=== PATIENT | female | born 1985 | race Caucasian/White ===

== ENCOUNTER 2016-12-03 17:04 | Inpatient (IN) | payer BC ==
[~2016-12-03] VITALS: Ht 162.6 cm; Wt 59.7 kg
[2016-12-03] MEDS ORDERED: ACETAMINOPHEN 500 MG TAB PO STA (17:27)
[2016-12-03] MEDS ORDERED: SODIUM CHLORIDE 0.9% 1000ML 1,000 ML IV ONE (17:27)
[2016-12-03] MEDS ORDERED: LEVOFLOXACIN 250 MG TAB PO STA (17:27)
[2016-12-03] MEDS ORDERED: KETOROLAC TROMETHAMINE 30 MG/ML VIAL IV STA (17:32)
[2016-12-03] MEDS ORDERED: BCPILLS PO (17:55)
--- NOTE | 2016-12-03 18:06 | DIAGNOSTIC IMAGING REPORT ---
CHEST ONE VIEW PORTABLE CLINICAL HISTORY: Sepsis COMPARISON STUDY: No previous studies for comparison. FINDINGS: The cardiac and mediastinal contours are normal. There is no evidence of focal pulmonary consolidation. There is no evidence of failure. No pleural effusions are visualized.[ IMPRESSION: No active disease in the chest. Electronically signed by: Gildardo Dickinson M.D. 12/03/2016 6:05 PM Dictated Date/Time: 12/03/2016 6:05 PM
[2016-12-03 18:20] LABS: URINE APPEARANCE CLEAR (CLEAR); URINE COLOR ORANGE; URINE EPITHELIAL CELL AUTO >30 /lpf (0-5); URINE NITRITE NEG (NEG); URINE PH 5.5 (4.5-7.5); URINE SPECIFIC GRAVITY 1.024 (1.000-1.030); UROBILINOGEN NEG (NEG); ZZUR CULT IF INDIC CLEAN CATCH YES
[2016-12-03 18:23] LABS: INR 1.1 (0.9-1.1); PARTIAL THROMBOPLASTIN RATIO 1.3; PROTHROMBIN TIME (PATIENT) 11.6 SECONDS (9.0-12.0)
[2016-12-03 18:31] LABS: BUN/CREATININE RATIO 16.2 (10-20); CREATININE 0.8 mg/dl (0.60-1.20); POTASSIUM 3.5 mmol/L (3.5-5.1)
[2016-12-03 18:34] LABS: ALB/GLOB RATIO 0.8 (0.9-2); C-REACTIVE PROTEIN 16.2 mg/dl (0-0.29); MANUAL MICROSCOPIC REQUIRED? NO; REVIEW REQ? YES; URINE BILIRUBIN NEG (NEG)
[2016-12-03 18:35] LABS: URINE MUCUS PRESENT (NONE PRSENT)
[2016-12-03 18:48] LABS: BASO % 0.2 %; BASO ABS # 0.04 K/uL (0-0.2); COMPLETE YES; EOS % 0.9 %; HEMATOCRIT 37.5 % (37-47); IG% 0.4 %; LYMPH ABS # 1.16 K/uL (1.2-3.4); MEAN CELL VOLUME 84.1 fL (80-100); MEAN CORPUSCULAR HEMOGLOBIN 28.7 pg (25-34); MEAN CORPUSCULAR HGB CONC 34.1 g/dl (32-36); MEAN PLATELET VOLUME 10.2 fL (7.4-10.4); MONO % 6.9 %; NEUT % 84.6 %; PLATELET COUNT 403 K/uL (130-400); RED BLOOD COUNT 4.46 M/uL (4.2-5.4); WHITE BLOOD COUNT 16.61 K/uL (4.8-10.8)
--- NOTE | 2016-12-03 18:51 | DIAGNOSTIC IMAGING REPORT ---
ULTRASOUND BILATERAL LOWER EXTREMITY VENOUS CLINICAL HISTORY: Lower extremity edema. COMPARISON STUDY: No priors. TECHNIQUE: Real-time, grayscale, and color Doppler sonography of the deep veins of the right and left lower extremity was performed from the inguinal crease to the calf. Compression and augmentation were utilized. FINDINGS: There is no sonographic evidence of deep venous thrombosis identified in the right or left lower extremity. The common femoral, superficial femoral, and popliteal veins are patent and normally compressible bilaterally. The greater saphenous vein and the profunda femoris vein at the junction with the common femoral vein are clear in both legs. The visualized calf veins are patent bilaterally. IMPRESSION: There is no sonographic evidence of deep venous thrombosis identified in the right or left lower extremity. Electronically signed by: Harvey Menard M.D. 12/03/2016 6:49 PM Dictated Date/Time: 12/03/2016 6:49 PM
[2016-12-03] MEDS ORDERED: VANCOMYCIN 1GM/270ML NSS IV STA (19:09)
--- NOTE | 2016-12-03 19:55 | EMERGENCY ROOM VISIT NOTE ---
History Report prepared by Nelda: Abraham Potter Under the Supervision of: Dr. Harvey Chacon M.D. First contact with patient: 17:24 Chief Complaint: SWELLING TO EXTREMITY Stated Complaint: SEVERE BRUSING, SWELLING, INFLAMMATION ON LEGS History of Present Illness The patient is a 31 year old female who presents to the Emergency Room with complaints of worsening lower extremity swelling that began two weeks ago. She rates her pain as an 8/10 in severity. She states that she went on a plane to go on vacation two weeks ago and noticed that there was some redness to her legs. The patient states that following vacation, her legs began to swell and the red spots on her legs worsened. She reports that over the last two weeks her swelling and redness has worsened. The patient states that her legs are painful when they are touched. The patient states that over the weekend, her symptoms have been the worst. She states that she went to [employer] where she found out she had a fever and was diagnosed with bilateral cellulitis. The patient admits to a history of bronchitis for four months this year, and reports that she coughs once in a while. She states that she believes the cough is due to her bronchitis history. The patient denies a history of diabetes, liver problem, lung problems, and kidney issues. She admits that she currently takes control pills and is allergic to Penicillin. The patient denies any bites, sore throat, vomiting, diarrhea, and congestion. Source of History: patient Onset: two weeks ago Position: leg (bilateral) Symptom Intensity: 8/10 Quality: other (swelling, erythema, pain) Timing: worsening Modifying Factors (Worsening): other (touch) Associated Symptoms: + cough, + rash, No sorethroat, No vomiting, No diarrhea Review of Systems See HPI for pertinent positives & negatives. A total of 10 systems reviewed and were otherwise negative. Past Medical & Surgical Medical Problems: (1) Bronchitis (2) Bronchitis (3) Cellulitis Family History Patient reports no known family medical history. Social History Smoking Status: Never Smoker Housing Status: lives with significant other Occupation Status: employed Current/Historical Medications Scheduled Control Pills ( Control Pills), 1 TAB PO DAILY Allergies Uncoded Allergies: PENICILLIN (Allergy, Unknown, UNKNOWN - CHILDHOOD, 12/03/16) Physical Exam Vital Signs Date Time Temp Pulse Resp B/P (MAP) Pulse Ox O2 Delivery O2 Flow Rate FiO2 12/03/16 19:21 116 18 101/59 97 Room Air 12/03/16 17:57 Room Air 12/03/16 17:19 38.0 125 20 136/84 99 Room Air Physical Exam GENERAL: Patient is in no acute distress. HEENT: No acute trauma, normocephalic atraumatic, mucous membranes moist, no nasal congestion, no scleral icterus. NECK: No stridor, no adenopathy, no meningismus, trachea is midline. LUNGS: Clear to auscultation bilaterally, no wheeze, no rhonchi, breath sounds equal. HEART: Tachycardic with a regular rhythm and no murmurs. ABDOMEN: Soft, nontender, bowel sounds positive, no hernias, no peritonitis. EXTREMITIES: Bilateral pedal edema. There are areas of erythema and warmth to both legs in a patchy distribution mostly anteriorly. Located from the knees to the ankles. No drainage. NEUROLOGIC: Oriented x 3, no acute motor or sensory deficits, no focal weakness. SKIN: No rash, no jaundice, no diaphoresis. Medical Decision & Procedures ER Provider Diagnostic Interpretation: Radiology results as stated below per my review and radiologist interpretation: ULTRASOUND BILATERAL LOWER EXTREMITY VENOUS CLINICAL HISTORY: Lower extremity edema. COMPARISON STUDY: No priors. TECHNIQUE: Real-time, grayscale, and color Doppler sonography of the deep veins of the right and left lower extremity was performed from the inguinal crease to the calf. Compression and augmentation were utilized. FINDINGS: There is no sonographic evidence of deep venous thrombosis identified in the right or left lower extremity. The common femoral, superficial femoral, and popliteal veins are patent and normally compressible bilaterally. The greater saphenous vein and the profunda femoris vein at the junction with the common femoral vein are clear in both legs. The visualized calf veins are patent bilaterally. IMPRESSION: There is no sonographic evidence of deep venous thrombosis identified in the right or left lower extremity. Electronically signed by: Harvey Menard M.D. 12/03/2016 6:49 PM Dictated Date/Time: 12/03/2016 6:49 PM CHEST ONE VIEW PORTABLE CLINICAL HISTORY: Sepsis COMPARISON STUDY: No previous studies for comparison. FINDINGS: The cardiac and mediastinal contours are normal. There is no evidence of focal pulmonary consolidation. There is no evidence of failure. No pleural effusions are visualized.[ IMPRESSION: No active disease in the chest. Electronically signed by: Gildardo Dickinson M.D. 12/03/2016 6:05 PM Dictated Date/Time: 12/03/2016 6:05 PM Laboratory Results 12/03/16 17:45 Red Blood Count 4.46, Mean Corpuscular Volume 84.1, Mean Corpuscular Hemoglobin 28.7, Mean Corpuscular Hemoglobin Concent 34.1, Mean Platelet Volume 10.2, Neutrophils (%) (Auto) 84.6, Lymphocytes (%) (Auto) 7.0, Monocytes (%) (Auto) 6.9, Eosinophils (%) (Auto) 0.9, Basophils (%) (Auto) 0.2, Neutrophils # (Auto) 14.05, Lymphocytes # (Auto) 1.16, Monocytes # (Auto) 1.14, Eosinophils # (Auto) 0.15, Basophils # (Auto) 0.04 12/03/16 17:45 Test 12/03/16 17:45 White Blood Count 16.61 K/uL (4.8-10.8) Red Blood Count 4.46 M/uL (4.2-5.4) Hemoglobin 12.8 g/dL (12.0-16.0) Hematocrit 37.5 % (37-47) Mean Corpuscular Volume 84.1 fL (80-100) Mean Corpuscular Hemoglobin 28.7 pg (25-34) Mean Corpuscular Hemoglobin Concent 34.1 g/dl (32-36) Platelet Count 403 K/uL (130-400) Mean Platelet Volume 10.2 fL (7.4-10.4) Neutrophils (%) (Auto) 84.6 % Lymphocytes (%) (Auto) 7.0 % Monocytes (%) (Auto) 6.9 % Eosinophils (%) (Auto) 0.9 % Basophils (%) (Auto) 0.2 % Neutrophils # (Auto) 14.05 K/uL (1.4-6.5) Lymphocytes # (Auto) 1.16 K/uL (1.2-3.4) Monocytes # (Auto) 1.14 K/uL (0.11-0.59) Eosinophils # (Auto) 0.15 K/uL (0-0.5) Basophils # (Auto) 0.04 K/uL (0-0.2) RDW Standard Deviation 37.9 fL (36.4-46.3) RDW Coefficient of Variation 12.4 % (11.5-14.5) Immature Granulocyte % (Auto) 0.4 % Immature Granulocyte # (Auto) 0.07 K/uL (0.00-0.02) Erythrocyte Sedimentation Rate 43 mm/hr (0-21) Prothrombin Time 11.6 SECONDS (9.0-12.0) Prothromb Time International Ratio 1.1 (0.9-1.1) Activated Partial Thromboplast Time 32.9 SECONDS (21.0-31.0) Partial Thromboplastin Ratio 1.3 Urine Color ORANGE Urine Appearance CLEAR (CLEAR) Urine pH 5.5 (4.5-7.5) Urine Specific [place] 1.024 (1.000-1.030) Urine Protein TRACE (NEG) Urine Glucose (UA) NEG (NEG) Urine Ketones TRACE (NEG) Urine Occult Blood NEG (NEG) Urine Nitrite NEG (NEG) Urine Bilirubin NEG (NEG) Urine Urobilinogen NEG (NEG) Urine Leukocyte Esterase SMALL (NEG) Urine WBC (Auto) 10-30 /hpf (0-5) Urine RBC (Auto) 0-4 /hpf (0-4) Urine Hyaline Casts (Auto) 0 /lpf (0-5) Urine Epithelial Cells (Auto) >30 /lpf (0-5) Urine Bacteria (Auto) 1+ (NEG) Urine Pathogenic Casts /lpf (0) Urine Mucus PRESENT (NONE PRSENT) Anion Gap 9.0 mmol/L (3-11) Est Creatinine Clear Calc Drug Dose 88.0 ml/min Estimated GFR () 113.9 Estimated GFR (Non- 98.2 BUN/Creatinine Ratio 16.2 (10-20) Calcium Level 9.0 mg/dl (8.5-10.1) Total Bilirubin 0.8 mg/dl (0.2-1) Aspartate Amino Transf (AST/SGOT) 8 U/L (15-37) Alanine Aminotransferase (ALT/SGPT) 18 U/L (12-78) Alkaline Phosphatase 83 U/L (45-117) C-Reactive Protein 16.20 mg/dl (0-0.29) Total Protein 7.9 gm/dl (6.4-8.2) Albumin 3.4 gm/dl (3.4-5.0) Globulin 4.5 gm/dl (2.5-4.0) Albumin/Globulin Ratio 0.8 (0.9-2) Medications Administered Medications (Trade) Dose Ordered Sig/Vandana Route Start Time Stop Time Status Last Admin Dose Admin Sodium Chloride 1,000 ml @ 999 mls/hr Q1H1M ONCE IV 12/03/16 17:27 12/03/16 18:27 DC 12/03/16 17:59 999 MLS/HR Acetaminophen (Tylenol Tab) 1,000 mg NOW STAT PO 12/03/16 17:27 12/03/16 17:32 DC 12/03/16 17:59 1,000 MG Levofloxacin (Levaquin Tab) 750 mg NOW STAT PO 12/03/16 17:27 12/03/16 17:32 DC 12/03/16 17:59 750 MG Ketorolac Tromethamine (Toradol Inj) 30 mg NOW STAT IV 12/03/16 17:32 12/03/16 17:33 DC 12/03/16 18:00 30 MG Vancomycin HCl (Vancomycin 1gm/ 270ml Nss) 1 gm NOW STAT IV 12/03/16 19:09 12/03/16 19:11 DC 12/03/16 19:20 1 GM ED Course 1727: The patient was evaluated in room A10. A complete history and physical exam was performed. 1727: Ordered Levaquin Tab 750 mg PO, Tylenol Tab 1000 mg PO, Sodium Chloride 1000 ml @ 999 mls/hr IV. 173: Ordered Toradol Injection 30 mg IV. 1908: Ordered Vancomycin HCl 1 gm IV. 1913: I reevaluated the patient and updated her on her results. I discussed the treatment plan and she agrees. The patient will be further evaluated. 1911: I discussed the patients case with Dr. Linder, [facility]. He understands the patients condition and agrees to accept the patient. The patient will be further evaluated. Medical Decision The patient is a 31 year old female who presents to the ED with complaints of worsening bilateral lower extremity edema that began two weeks ago. Differential diagnoses considered include erythema nodosum, cellulitis, DVT, sepsis or bacteremia, electrolyte imbalance, dehydration, and viral illness., There is a moderate leukocytosis, this is consistent with infection. No concerning anemia. No significant electrolyte abnormality, kidney failure or hepatitis. Lactic acid value is currently pending. Chest film does not show pneumonia or CHF. Bilateral lower extremity ultrasound does not show evidence for DVT. Blood cultures are pending. There was no coagulopathy. Urinalysis shows contamination, no obvious infection. The patient presents with leg redness and fever. She has a leukocytosis and presents somewhat tachycardic. Cellulitis seems the most likely diagnosis although the distribution of the cellulitis is somewhat atypical. Erythema nodosum is also a possibility. I do think a hospital stay is warranted. I spoke to the patient and the director of casework. The on-call hospitalist was consulted. The patient received oral Levaquin, IV vancomycin. She received IV saline for hydration. She was given IV Toradol for pain. She received oral Tylenol for her fever. She seems comfortable. Medication Reconcilliation Current Medication List: was personally reviewed by me Blood Pressure Screening Patient's blood pressure: Elevated blood pressure Blood pressure disposition: Elevated BP felt to be situational Consults Time Called: 1911 [facility] Returned Call: 1911 I [facility] the patients case [facility] He understands the patients condition and agrees to accept the patient. The patient will be further evaluated. Impression Primary Impression: Cellulitis of both lower extremities Additional Impression: Tachycardia Scribe Attestation The scribe's documentation has been prepared under my direction and personally reviewed by me in its entirety. I confirm that the note above accurately reflects all work, treatment, procedures, and medical decision making performed by me. Departure Information Dispostion Being Evaluated By Hospitalist Referrals Licha Nguyen D.O. (PCP) Patient Instructions [facility] Problem Qualifiers
[2016-12-03 20:00] VITALS: BP 104/66; TEMP 36.9; O2SAT 95; Ht 162.6 cm; Wt 59.7 kg
[2016-12-03] MEDS ORDERED: ONDANSETRON INJ 2 MG/ML 2 ML VIAL IV PRN (20:00)
[2016-12-03] MEDS ORDERED: POLYETHYLENE (MIRALAX) 17 GM PACK PO PRN (20:00)
[2016-12-03] MEDS ORDERED: ACETAMINOPHEN 325 MG TAB PO PRN (20:00)
[2016-12-03 20:21] VITALS: O2SAT 97
[2016-12-03 20:59] VITALS: BP 104/66; PULSE 103; TEMP 36.9; O2SAT 95
[2016-12-03] MEDS ORDERED: VANCOMYCIN CONSULT ACTIVE PRN (21:00)
--- NOTE | 2016-12-03 21:01 | HISTORY & PHYSICAL EXAMINATION ---
DATE OF ADMISSION: 12/03/2016 CHIEF COMPLAINT: Bilateral lower extremity pain and erythema. HISTORY OF PRESENT ILLNESS: This is a 31-year-old female with no significant past medical history, who comes with bilateral lower extremity erythema and swelling. The patient states that she was on vacation in [place], [place] and [place] and came back a couple of weeks ago. Since she came in she noticed some bruises on her lower extremity and over the last weekend they have got worse and also noticed swelling in the legs; so she went to a urgent care and was sent to the ER. She was found to have some temp spike in the ER. She denies any insect bite or tick bite. No injury. Otherwise, she is doing okay. She denies any headaches, no blurred vision, no dizziness, no sore throat and no difficulty swallowing. No runny nose, no chest pain, no shortness of breath, no cough, no nausea, no vomiting and no abdominal pain. Has normal bowel and bladder movements. No blood in the stools, no black stools and no blood in the urine. Appetite is okay. Since yesterday, she is having difficulty ambulating because of pain in the lower extremities. Currently resting comfortably, somewhat tachycardic in the ER. ALLERGIES: TO PENICILLINS. PAST MEDICAL HISTORY: As mentioned above. PAST SURGICAL HISTORY: Dental surgeries. MEDICATIONS: control pills. FAMILY HISTORY: Significant for; mother has anemia and father has hypertension and skin cancer. SOCIAL HISTORY: . No smoking history. Uses alcohol occasionally. No drug abuse. REVIEW OF SYMPTOMS: As per HPI. Rest of the review of systems negative. PHYSICAL EXAMINATION: GENERAL: The patient is of moderate build, not in distress. VITAL SIGNS: T-max 38, pulse 116, respiratory rate 18, blood pressure 101/59 and oxygen 97% on room air. HEENT: No pallor, no icterus. Pupils are equal, round and reactive to light. NECK: No JVD, no neck masses, no carotid bruits. CARDIOVASCULAR: S1, S2 heard. Tachycardia. No murmurs. RESPIRATORY SYSTEM: Normal AP diameter. No accessory muscle use. No wheezing, no crackles. ABDOMEN: Soft, bowel sounds are present. Nontender. No distention. CENTRAL NERVOUS SYSTEM: Cranial nerves II-XII are grossly intact. Nonfocal. EXTREMITIES: Bilateral lower extremity edema seen and patchy erythematous changes and symmetrical distribution in bilateral lower extremity seen. LABORATORIES: WBC 16, hemoglobin 12.8, hematocrit 37.5 and platelets 403. Sodium 135, potassium 3.5, chloride 102, bicarbonate 24, BUN 13, creatinine 0.8 and serum glucose 92. Total bilirubin 0.8, AST 8, ALT 18 and alkaline phosphatase 83. C-reactive protein 16.2. PT 11.6, INR 1.1 and PTT 32.9. Urinalysis; positive for leukocyte esterase. Lower extremity venous Doppler; negative study. Chest x-ray; no acute findings seen. ASSESSMENT AND PLAN: This is a 31-year-old female, who presents with lower extremity erythema and swelling. 1. Lower extremity erythema and swelling. She has patchy erythematous changes with poor demarcation on lower extremities, mostly on the schaefer areas. She had temp spike, tachycardia and white count. Possible early sepsis with cellulitis. Empirically starting on IV vancomycin and IV Levaquin. Follow blood cultures and urine cultures. Questionable erythema nodosum. Has erythematous changes, patchy, poorly demarcated and symmetrically on both the lower extremities and the schaefer areas. Etiology is unclear. We will consult ID and if there any concern for erythema nodosum we will consult rheumatology. 2. Possible urinary tract infection, on antibiotics as above. Will follow cultures. 3. Deep venous thrombosis prophylaxis, Lovenox. 4. Disposition: Admit to medical floor. Expect discharge home and follow with the family doctor. Level 1 full code. MTDD
--- NOTE | 2016-12-03 21:11 | Pharmacy Progress Note ---
Pharmacy Abx Initial Consult Date of Service Dec 03, 2016. Pharmacy Dosing Scope Date of Consult: 12/03/16 Consultation requested by: Dr. Linder Pharmacy is consulted to initiate Vancomycin IV dosing therapy, order appropriate labs and adjust drug dose/frequency. Subjective The patient is a 31 year old female admitted on Dec 03, 2016 at 19:58. Objective Height (Feet): 5 Height (Inches): 4.00 Weight (Kilograms): 59.700 Vital Signs (Past 12Hrs) Vital Signs Past 12 Hours Date Time Temp Pulse Resp B/P (MAP) Pulse Ox O2 Delivery O2 Flow Rate FiO2 12/03/16 20:59 36.9 103 18 104/66 (79) 95 Room Air 12/03/16 20:21 36.9 104 16 96/49 97 12/03/16 19:21 116 18 101/59 97 Room Air 12/03/16 17:57 Room Air 12/03/16 17:19 38.0 125 20 136/84 99 Room Air Lab Results (24Hrs) Item Value Date Time Creatinine 0.80 mg/dl 12/03/161744 Est Creatinine Clear Calc Drug Dose 88.0 ml/min 12/03/161744 Estimated GFR () 113.9 12/03/161744 Estimated GFR (Non- 98.2 12/03/161744 Laboratory Tests (24 Hours) Test 12/03/16 17:45 C-Reactive Protein 16.20 mg/dl (0-0.29) H Erythrocyte Sedimentation Rate 43 mm/hr (0-21) H White Blood Count 16.61 K/uL (4.8-10.8) H Red Blood Count 4.46 M/uL (4.2-5.4) Hemoglobin 12.8 g/dL (12.0-16.0) Hematocrit 37.5 % (37-47) Mean Corpuscular Volume 84.1 fL (80-100) Mean Corpuscular Hemoglobin 28.7 pg (25-34) Mean Corpuscular Hemoglobin Concent 34.1 g/dl (32-36) Platelet Count 403 K/uL (130-400) H Mean Platelet Volume 10.2 fL (7.4-10.4) Neutrophils (%) (Auto) 84.6 % Lymphocytes (%) (Auto) 7.0 % Monocytes (%) (Auto) 6.9 % Eosinophils (%) (Auto) 0.9 % Basophils (%) (Auto) 0.2 % Neutrophils # (Auto) 14.05 K/uL (1.4-6.5) H Lymphocytes # (Auto) 1.16 K/uL (1.2-3.4) L Monocytes # (Auto) 1.14 K/uL (0.11-0.59) H Eosinophils # (Auto) 0.15 K/uL (0-0.5) Basophils # (Auto) 0.04 K/uL (0-0.2) Micro Results Date/Time Source Procedure Growth Status 12/03/16 18:10 Blood Blood Culture Pending Received 12/03/16 17:46 Blood Blood Culture Pending Received 12/03/16 17:45 Urine , Clean Catch Urine Culture Pending Received Assessment & Plan Assessment 31 year old female patient presented to the ED with complaints of worsening bilateral lower extremity edema that began two weeks ago. Differential diagnoses included erythema nodosum, cellulitis, DVT, sepsis or bacteremia, electrolyte imbalance, dehydration, and viral illness., Plan Vancomycin for treatment of Cellulitis/Bacteremia Vancomycin IV * Loading dose: 1,000 mg (16.8 mg/kg) * Maintenance dose: 1,000 mg IV (16.8 mg/kg) every 12 hours. * Began maintenance dose early at 02:00 on 12/04/16 instead of an additional loading dose. * Goal trough level for soft skin tissue/bacteremia : 15 to 20 mcg/mL * Trough/Random level ordered for 12/05/16 @13:30. Pharmacy will continue to follow and will adjust dose/frequency as necessary. Thank you.
[2016-12-03] MEDS: ENOXAPARIN 40 MG/0.4 ML SYR SQ SCH (22:00)
[2016-12-03] MEDS: SODIUM CHLORIDE 0.9% 1000ML 1,000 ML IV SCH (22:20)
[2016-12-03] MEDS: [UNRECOGNIZED DRUG - REMARK] SCH (23:45)
[2016-12-04 00:05] VITALS: BP 101/67; PULSE 93; TEMP 36.9; O2SAT 97
[2016-12-04] MEDS ORDERED: INFLUENZA ADMINISTRATION CHARGE ONE (00:15)
[2016-12-04] MEDS ORDERED: INFLUENZA VIRUS QUAD VACCINE 0.5 ML SYR IM. ONE (00:15)
[2016-12-04] MEDS: VANCOMYCIN INJ 1,000 MG in SODIUM CHLORIDE 0.9% 250ML 250 ML IV SCH ×2 (02:00→14:12)
[2016-12-04] MEDS: SODIUM CHLORIDE 0.9% 1000ML 1,000 ML IV SCH ×2 (04:11→11:53)
[2016-12-04 07:08] VITALS: BP 99/63; PULSE 100; TEMP 36.9; O2SAT 98
[2016-12-04] MEDS: [UNRECOGNIZED DRUG - REMARK] SCH ×3 (07:30→23:26)
[2016-12-04 07:52] LABS: BASO % 0.3 %; BASO ABS # 0.02 K/uL (0-0.2); COMPLETE YES; EOS % 2.1 %; HEMATOCRIT 30.6 % (37-47); IG% 0.3 %; LYMPH % 12.5 %; LYMPH ABS # 0.95 K/uL (1.2-3.4); MEAN CELL VOLUME 85.5 fL (80-100); MEAN CORPUSCULAR HEMOGLOBIN 28.8 pg (25-34); MEAN CORPUSCULAR HGB CONC 33.7 g/dl (32-36); MEAN PLATELET VOLUME 9.8 fL (7.4-10.4); MONO % 10.6 %; NEUT % 74.2 %; PLATELET COUNT 306 K/uL (130-400); RED BLOOD COUNT 3.58 M/uL (4.2-5.4); WHITE BLOOD COUNT 7.57 K/uL (4.8-10.8)
[2016-12-04 08:26] LABS: BUN/CREATININE RATIO 16.1 (10-20); CALCIUM 8.2 mg/dl (8.5-10.1); CREATININE 0.65 mg/dl (0.60-1.20); MAGNESIUM 2.3 mg/dl (1.8-2.4); POTASSIUM 4.2 mmol/L (3.5-5.1)
--- NOTE | 2016-12-04 10:36 | Medical Consult ---
Consultation Date of Consultation: Dec 04, 2016. Attending Physician: Ariel Maldonado MD Reason for Consultation: Lower extremity cellulitis? History of Present Illness 31-year-old female in prior good health was well until approximately 2 weeks ago when after travel to [place], [place], and [place], she developed progressively worsening painful erythematous nodules on both lower extremities associated with leg swelling, mostly anteriorly, and was found to be febrile when came to the emergency department. She denies any significant associated complaints. She has not had sore throat, cough, diarrhea, urinary complaints, or significant headache. Has grandmother with rheumatoid arthritis. No ill contacts. No other significant travel or exposure history. She has been started empirically on vancomycin and Zosyn. Cultures [place] [id number], sed rate 43. Past Medical/Surgical History Medical Problems: (1) Cellulitis of both lower extremities Status: Acute (2) Tachycardia Status: Acute Medical Problems: (1) Bronchitis (2) Bronchitis (3) Cellulitis Family History Patient reports no known family medical history. Social History Smoking Status: Never Smoker Housing Status: lives with significant other Occupation Status: employed Allergies Uncoded Allergies: PENICILLIN (Allergy, Unknown, UNKNOWN - CHILDHOOD, 12/03/16) Current Inpatient Medications Current Inpatient Medications Medications (Trade) Dose Ordered Sig/Vandana Route Start Time Stop Time Status Last Admin Dose Admin Enoxaparin Sodium (Lovenox Inj) 40 mg Q24H SQ 12/03/16 22:00 01/02/17 21:59 Acetaminophen (Tylenol Tab) 650 mg Q4H PRN PO 12/03/16 20:00 01/02/17 19:59 Polyethylene (Miralax Powder Packet) 17 gm DAILY PRN PO 12/03/16 20:00 01/02/17 19:59 Ondansetron HCl (Zofran Inj) 4 mg Q6H PRN IV 12/03/16 20:00 01/02/17 19:59 Miscellaneous Information (Order Awaiting Action) 1 ea QS N/A 12/04/16 00:00 01/03/17 00:00 Sodium Chloride 1,000 ml @ 125 mls/hr Q8H IV 12/03/16 20:00 01/02/17 19:59 12/04/16 04:11 125 MLS/HR Vancomycin HCl 1000 mg/Sodium Chloride 270 ml @ 125 mls/hr Q12H IV 12/04/16 02:00 12/14/16 01:59 12/04/16 02:00 125 MLS/HR Levofloxacin 500 mg/Prmx 100 ml @ 100 mls/hr Q24H IV 12/04/16 18:00 12/13/16 17:59 Vancomycin HCl (Consult) 1 ea UD PRN N/A 12/03/16 21:00 01/02/17 20:59 Review of Systems All systems were reviewed and are negative except as per HPI Physical Exam Date Time Temp Pulse Resp B/P (MAP) Pulse Ox O2 Delivery O2 Flow Rate FiO2 12/04/16 08:00 Room Air 12/04/16 07:08 36.9 100 18 99/63 (75) 98 Room Air 12/04/16 00:05 36.9 93 18 101/67 (78) 97 Room Air 12/04/16 00:00 Room Air 12/03/16 20:59 36.9 103 18 104/66 (79) 95 Room Air 12/03/16 20:21 36.9 104 16 96/49 97 12/03/16 20:00 36.9 18 104/66 95 Room Air 12/03/16 19:21 116 18 101/59 97 Room Air 12/03/16 17:57 Room Air 12/03/16 17:19 38.0 125 20 136/84 99 Room Air General Appearance: WD/WN, no apparent distress Head: normocephalic, atraumatic Eyes: normal inspection, EOMI, sclerae normal ENT: normal ENT inspection, hearing grossly normal, pharynx normal Neck: supple, no adenopathy, thyroid normal, trachea midline Respiratory/Chest: chest non-tender, lungs clear, normal breath sounds, no respiratory distress Cardiovascular: regular rate, rhythm, no gallop, no murmur Abdomen/GI: normal bowel sounds, non tender, soft, no organomegaly Back: normal inspection, no CVA tenderness Extremities/Musculoskelatal: normal capillary refill, + inflammation, + swelling Neurologic/Psych: alert, normal mood/affect, oriented x 3 Skin: normal color, warm/dry, + pertinent finding (Multiple erythematous nodular lesions, tender, mostly on her anterior shins.) Laboratory Results Date/Time Source Procedure Growth Status 12/03/16 18:10 Blood Blood Culture Pending Received 12/03/16 17:46 Blood Blood Culture Pending Received 12/03/16 17:45 Urine , Clean Catch Urine Culture Pending Received Last 24 Hours Test 12/03/16 17:45 12/04/16 06:58 White Blood Count 16.61 K/uL 7.57 K/uL Red Blood Count 4.46 M/uL 3.58 M/uL Hemoglobin 12.8 g/dL 10.3 g/dL Hematocrit 37.5 % 30.6 % Mean Corpuscular Volume 84.1 fL 85.5 fL Mean Corpuscular Hemoglobin 28.7 pg 28.8 pg Mean Corpuscular Hemoglobin Concent 34.1 g/dl 33.7 g/dl Platelet Count 403 K/uL 306 K/uL Mean Platelet Volume 10.2 fL 9.8 fL Neutrophils (%) (Auto) 84.6 % 74.2 % Lymphocytes (%) (Auto) 7.0 % 12.5 % Monocytes (%) (Auto) 6.9 % 10.6 % Eosinophils (%) (Auto) 0.9 % 2.1 % Basophils (%) (Auto) 0.2 % 0.3 % Neutrophils # (Auto) 14.05 K/uL 5.62 K/uL Lymphocytes # (Auto) 1.16 K/uL 0.95 K/uL Monocytes # (Auto) 1.14 K/uL 0.80 K/uL Eosinophils # (Auto) 0.15 K/uL 0.16 K/uL Basophils # (Auto) 0.04 K/uL 0.02 K/uL RDW Standard Deviation 37.9 fL 39.1 fL RDW Coefficient of Variation 12.4 % 12.5 % Immature Granulocyte % (Auto) 0.4 % 0.3 % Immature Granulocyte # (Auto) 0.07 K/uL 0.02 K/uL Erythrocyte Sedimentation Rate 43 mm/hr Prothrombin Time 11.6 SECONDS Prothromb Time International Ratio 1.1 Activated Partial Thromboplast Time 32.9 SECONDS Partial Thromboplastin Ratio 1.3 Urine Color ORANGE Urine Appearance CLEAR Urine pH 5.5 Urine Specific [place] 1.024 Urine Protein TRACE Urine Glucose (UA) NEG Urine Ketones TRACE Urine Occult Blood NEG Urine Nitrite NEG Urine Bilirubin NEG Urine Urobilinogen NEG Urine Leukocyte Esterase SMALL Urine WBC (Auto) 10-30 /hpf Urine RBC (Auto) 0-4 /hpf Urine Hyaline Casts (Auto) 0 /lpf Urine Epithelial Cells (Auto) >30 /lpf Urine Bacteria (Auto) 1+ Urine Pathogenic Casts /lpf Urine Mucus PRESENT Sodium Level 135 mmol/L 141 mmol/L Potassium Level 3.5 mmol/L 4.2 mmol/L Chloride Level 102 mmol/L 111 mmol/L Carbon Dioxide Level 24 mmol/L 23 mmol/L Anion Gap 9.0 mmol/L 8.0 mmol/L Blood Urea Nitrogen 13 mg/dl 11 mg/dl Creatinine 0.80 mg/dl 0.65 mg/dl Est Creatinine Clear Calc Drug Dose 88.0 ml/min 108.4 ml/min Estimated GFR () 113.9 137.1 Estimated GFR (Non- 98.2 118.3 BUN/Creatinine Ratio 16.2 16.1 Random Glucose 92 mg/dl 86 mg/dl Calcium Level 9.0 mg/dl 8.2 mg/dl Total Bilirubin 0.8 mg/dl Aspartate Amino Transf (AST/SGOT) 8 U/L Alanine Aminotransferase (ALT/SGPT) 18 U/L Alkaline Phosphatase 83 U/L C-Reactive Protein 16.20 mg/dl Total Protein 7.9 gm/dl Albumin 3.4 gm/dl Globulin 4.5 gm/dl Albumin/Globulin Ratio 0.8 Magnesium Level 2.3 mg/dl Anti-Streptolysin O Antibody Screen NEG IU/ml Patient Name: SWEETIE MCGILL Unit Number: [id number] Dictated: 12/03/161804 Transcribed: 12/03/161804 ARG Printed Date/Time: [~ rep prt dt]/[~ rep prt tm] [~ rep ct labl] - [~ rep ct ivnm] [facility] [place] [address] Dictated: 12/03/161804 Transcribed: 12/03/161804 ARG Printed Date/Time: [~ rep prt dt]/[~ rep prt tm] [~ rep ct labl] - [~ rep ct ivnm] CHEST ONE VIEW PORTABLE CLINICAL HISTORY: Sepsis COMPARISON STUDY: No previous studies for comparison. FINDINGS: The cardiac and mediastinal contours are normal. There is no evidence of focal pulmonary consolidation. There is no evidence of failure. No pleural effusions are visualized.[ IMPRESSION: No active disease in the chest. Electronically signed by: Gildardo Dickinson M.D. 12/03/2016 6:05 PM Dictated Date/Time: 12/03/2016 6:05 PM The status of this report is Signed. Draft = Not yet reviewed or approved by Radiologist. Signed = Reviewed and approved by Radiologist. <AttendingPhy></AttendingPhy> <FamilyPhy>Sweetie Nguyen D.O.</FamilyPhy> < PrimaryPhy>Sweetie Nguyen D.O.</PrimaryPhy> <UnitNumber>[id number]</ UnitNumber> <VisitNumber>[id number]</VisitNumber> <PatientName>SWEETIE MCGILL< /PatientName> <DateOfBirth>1985</DateOfBirth> <Location>[facility]</Location> < ServiceDate>12/03/16</ServiceDate> <MNE>ESINDI</MNE> <OrderingPhy>Harvey Chacon M.D.</OrderingPhy> <OrderingPhyMNE>f rep ord dr stephenson</OrderingPhyMNE> < DictatingPhyMNE>f rep dict dr stephenson</DictatingPhyMNE> <CCListMNE>f rep ct [place]</ CCListMNE> <AdmittingPhyMNE>f pt admit dr stephenson</AdmittingPhyMNE> <AttendingPhyMNE >f pt attend dr stephenson</AttendingPhyMNE> <ConsultingPhyMNE>f pt consult dr stephenson</ConsultingPhyMNE> <FamilyPhyMNE>f pt fam dr stephenson</FamilyPhyMNE> <OtherPhyMNE>f pt other dr stephenson</OtherPhyMNE> < PrimaryPhyMNE>f pt prim care dr stephenson</PrimaryPhyMNE> <ReferringPhyMNE>f pt referring dr stephenson</ReferringPhyMNE> Assessment & Plan Clinical picture seems more consistent with diagnosis of erythema nodosum rather than bilateral lower extremity cellulitis. Medications area pathogen, but can be associated with infectious causes especially group a strep infection , and fungal infections including coccidioidomycosis and histoplasmosis. She had been traveling in a Histoplasma endemic area, but no other symptoms of acute Histoplasma infection. Would continue antibiotics for now pending culture results, consider rheumatology consultation. I have ordered appropriate Histoplasma studies. Will follow.
--- NOTE | 2016-12-04 14:03 | Progress Note ---
Internal Med Progress Note Date of Service: Dec 04, 2016. Provider Documentation: SUBJECTIVE: Seen and examined at bedside States feeling better today Still has B/L leg pain with erythema but improving Pain worsens with ambulation Denies Chest pain, SOB, abd pain, dizziness, nausea, diarrhea OBJECTIVE: Vital Signs-as noted below Physical Exam: General Appearance:Moderately built and nourished, no apparent distress Head: normocephalic, Atraumatic Eyes: normal inspection, EOMI, PERRL Neck: supple, Trachea midline Respiratory/Chest: Normal breath sounds, CTA Cardiovascular: S1, S2, +Tachycardia, No murmur Abdomen/GI:Soft, Non tender, Bowel sounds present Extremities/Musculoskelatal:B/L LE edema, erythematous lesions Neurologic/Psych:AAOX3, grossly no focal neurological deficits Skin: Erthematous lesions as above Lab data as noted below. ASSESSMENT & PLAN: Patient is 31 yr female, who presents with lower extremity erythema and swelling. SIRS Lower extremity erythema and swelling: Likely Erythema nodosum Continue empiric IV vancomycin and Levaquin. Appreciate ID input Anti streptolysin screen: Negative Histoplasmosis work up pending Will consult Rheumatology Blood cultures: Pending Urine Culture: Negative CXR:No active disease Venous Doppler: No DVT DVT Px: Lovenox SQ Code Status: full code. Disposition: Turner to discharge home when stable Vital Signs: Date Time Temp Pulse Resp B/P (MAP) Pulse Ox O2 Delivery O2 Flow Rate FiO2 12/04/16 08:00 Room Air 12/04/16 07:08 36.9 100 18 99/63 (75) 98 Room Air 12/04/16 00:05 36.9 93 18 101/67 (78) 97 Room Air 12/04/16 00:00 Room Air 12/03/16 20:59 36.9 103 18 104/66 (79) 95 Room Air 12/03/16 20:21 36.9 104 16 96/49 97 12/03/16 20:00 36.9 18 104/66 95 Room Air 12/03/16 19:21 116 18 101/59 97 Room Air 12/03/16 17:57 Room Air 12/03/16 17:19 38.0 125 20 136/84 99 Room Air Lab Results: Results Past 24 Hours Test 12/03/16 17:45 12/04/16 06:58 12/04/16 10:36 Range/Units White Blood Count 16.61 7.57 4.8-10.8 K/uL Red Blood Count 4.46 3.58 4.2-5.4 M/uL Hemoglobin 12.8 10.3 12.0-16.0 g/dL Hematocrit 37.5 30.6 37-47 % Mean Corpuscular Volume 84.1 85.5 80-100 fL Mean Corpuscular Hemoglobin 28.7 28.8 25-34 pg Mean Corpuscular Hemoglobin Concent 34.1 33.7 32-36 g/dl Platelet Count 403 306 130-400 K/uL Mean Platelet Volume 10.2 9.8 7.4-10.4 fL Neutrophils (%) (Auto) 84.6 74.2 % Lymphocytes (%) (Auto) 7.0 12.5 % Monocytes (%) (Auto) 6.9 10.6 % Eosinophils (%) (Auto) 0.9 2.1 % Basophils (%) (Auto) 0.2 0.3 % Neutrophils # (Auto) 14.05 5.62 1.4-6.5 K/uL Lymphocytes # (Auto) 1.16 0.95 1.2-3.4 K/uL Monocytes # (Auto) 1.14 0.80 0.11-0.59 K/uL Eosinophils # (Auto) 0.15 0.16 0-0.5 K/uL Basophils # (Auto) 0.04 0.02 0-0.2 K/uL RDW Standard Deviation 37.9 39.1 36.4-46.3 fL RDW Coefficient of Variation 12.4 12.5 11.5-14.5 % Immature Granulocyte % (Auto) 0.4 0.3 % Immature Granulocyte # (Auto) 0.07 0.02 0.00-0.02 K/uL Erythrocyte Sedimentation Rate 43 0-21 mm/hr Prothrombin Time 11.6 9.0-12.0 SECONDS Prothromb Time International Ratio 1.1 0.9-1.1 Activated Partial Thromboplast Time 32.9 21.0-31.0 SECONDS Partial Thromboplastin Ratio 1.3 Urine Color ORANGE Urine Appearance CLEAR CLEAR Urine pH 5.5 4.5-7.5 Urine Specific [place] 1.024 1.000-1.030 Urine Protein TRACE NEG Urine Glucose (UA) NEG NEG Urine Ketones TRACE NEG Urine Occult Blood NEG NEG Urine Nitrite NEG NEG Urine Bilirubin NEG NEG Urine Urobilinogen NEG NEG Urine Leukocyte Esterase SMALL NEG Urine WBC (Auto) 10-30 0-5 /hpf Urine RBC (Auto) 0-4 0-4 /hpf Urine Hyaline Casts (Auto) 0 0-5 /lpf Urine Epithelial Cells (Auto) >30 0-5 /lpf Urine Bacteria (Auto) 1+ NEG Urine Pathogenic Casts 0 /lpf Urine Mucus PRESENT NONE PRSENT Sodium Level 135 141 136-145 mmol/L Potassium Level 3.5 4.2 3.5-5.1 mmol/L Chloride Level 102 111 98-107 mmol/L Carbon Dioxide Level 24 23 21-32 mmol/L Anion Gap 9.0 8.0 3-11 mmol/L Blood Urea Nitrogen 13 11 7-18 mg/dl Creatinine 0.80 0.65 0.60-1.20 mg/dl Est Creatinine Clear Calc Drug Dose 88.0 108.4 ml/min Estimated GFR () 113.9 137.1 Estimated GFR (Non- 98.2 118.3 BUN/Creatinine Ratio 16.2 16.1 10-20 Random Glucose 92 86 70-99 mg/dl Calcium Level 9.0 8.2 8.5-10.1 mg/dl Total Bilirubin 0.8 0.2-1 mg/dl Aspartate Amino Transf (AST/SGOT) 8 15-37 U/L Alanine Aminotransferase (ALT/SGPT) 18 12-78 U/L Alkaline Phosphatase 83 45-117 U/L C-Reactive Protein 16.20 0-0.29 mg/dl Total Protein 7.9 6.4-8.2 gm/dl Albumin 3.4 3.4-5.0 gm/dl Globulin 4.5 2.5-4.0 gm/dl Albumin/Globulin Ratio 0.8 0.9-2 Magnesium Level 2.3 1.8-2.4 mg/dl Anti-Streptolysin O Antibody Screen NEG <200 IU IU/ml Microbiology Results 12/03/16 Blood Culture, Received Pending 12/03/16 Blood Culture, Received Pending 12/03/16 Urine Culture - Preliminary, Resulted NO GROWTH - LESS THAN 1,000 COLONIES/...
[2016-12-04 16:03] VITALS: BP 105/69; PULSE 91; TEMP 36.9; O2SAT 100
[2016-12-04] MEDS ORDERED: LEVOFLOXACIN / D5W 500 MG in PREMIXED IN D5W 100 ML IV SCH (18:00)
[2016-12-04] MEDS: LEVOFLOXACIN 500 MG TAB PO SCH (18:09)
[2016-12-04] MEDS: ENOXAPARIN 40 MG/0.4 ML SYR SQ SCH (21:31)
[2016-12-04 23:32] VITALS: BP 95/59; PULSE 87; TEMP 36.9; O2SAT 97
[2016-12-05] MEDS: VANCOMYCIN INJ 1,000 MG in SODIUM CHLORIDE 0.9% 250ML 250 ML IV SCH ×3 (02:24→21:46)
[2016-12-05 07:20] VITALS: BP 105/69; PULSE 80; TEMP 36.7; O2SAT 98
[2016-12-05] MEDS: [UNRECOGNIZED DRUG - REMARK] SCH ×2 (07:23→15:44)
[2016-12-05 07:55] LABS: BASO % 0.7 %; BASO ABS # 0.04 K/uL (0-0.2); COMPLETE YES; EOS % 4.8 %; HEMATOCRIT 32.7 % (37-47); IG% 0.4 %; LYMPH % 21.5 %; LYMPH ABS # 1.17 K/uL (1.2-3.4); MEAN CELL VOLUME 85.4 fL (80-100); MEAN CORPUSCULAR HEMOGLOBIN 27.9 pg (25-34); MEAN CORPUSCULAR HGB CONC 32.7 g/dl (32-36); MEAN PLATELET VOLUME 9.6 fL (7.4-10.4); MONO % 9.9 %; NEUT % 62.7 %; PLATELET COUNT 320 K/uL (130-400); RED BLOOD COUNT 3.83 M/uL (4.2-5.4); WHITE BLOOD COUNT 5.43 K/uL (4.8-10.8)
--- NOTE | 2016-12-05 08:18 | Rheumatology Consultation ---
Rheumatology Consultation Date of Consultation: Dec 05, 2016. Requesting Physician: Dr Maldonado Attending Physician: Dr Maldonado Reason for Consultation: painful skin lesions History of Present Illness Licha is an overall healthy 31-year-old female who started to developed painful lesions on her legs starting November 23. She reports that she was on vacation at the time that she started developed these small red painful nodules on her shins. At the time she was in the [place] of occasion with her . 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 She denies any prior illness leading up to her vacation or any illness during vacation. She does not have any children currently. there is no family history of any autoimmune diseases and she does not have any personal history of an autoimmune disease. other than the painful skin lesion she had no other symptoms. the lesions continue to grow in size become more painful she developed leg swelling were she went to urgent care on SaturdayDecember 03 it was sent to the hospital for evaluation for concern for cellulitis. She was admitted on Saturday and started on IV antibiotics. So far urine and blood cultures are all normal. The only significant abnormal lab results was a sed rate of 42 and a total white count is 16. Her white count is now normalized.. she was seen by infectious disease Dr. Mirza and he really did not feel that this was infectious or cellulitis. ASO titers were normal. A throat culture is pending. Also histoplasmosis antigens are pending given her travel to the [place]. Given possibility a concern for erythema nodosum rheumatology was consulted. she was noted to have a low-grade fever at presentation but that was not something she was aware of and has not had fever since. She denies any drenching night sweats, chills, swollen glands or weight loss. If it was not for her lower legs and the pain that she is experiencing she feels fine. she reports that when she tries of walking that the pain is really over the anterior shins and extends to the ankle. She really does not have much significant joint complaints. She has no history of bowel disease were concerns for Crohn 's or ulcerative colitis. No history of past her G oral or vaginal ulcers or inflammatory eye disease. She really has not taken anything for her pain other than Tylenol. She did have a routine screening chest x-ray at presentation that was normal. her calcium level was normal. She denies any cough or shortness of breath. No chest pain. No nausea vomiting or diarrhea. Past Medical/Surgical History Medical History: no pertinent history Surgical History: no surgical history Family History no family history of autoimmune diseases Social History Smoking Status: Never Smoker History of Alcohol Use: Yes (occasionally) Occupation Status: employed Review of Systems Constitutional: + fever, No chills, No sweats, No weight loss Eyes: + see HPI ENT: + see HPI Respiratory: No cough Cardiac: + see HPI Abdomen: + see HPI Musculoskeletal: + see HPI Skin: + see HPI, + rash All Other Systems: Reviewed and Negative Allergies Uncoded Allergies: PENICILLIN (Allergy, Unknown, UNKNOWN - CHILDHOOD, 12/03/16) Medications Current Inpatient Medications Medications (Trade) Dose Ordered Sig/Vandana Route Start Time Stop Time Status Last Admin Dose Admin Enoxaparin Sodium (Lovenox Inj) 40 mg Q24H SQ 12/03/16 22:00 01/02/17 21:59 Acetaminophen (Tylenol Tab) 650 mg Q4H PRN PO 12/03/16 20:00 01/02/17 19:59 12/04/16 21:28 650 MG Polyethylene (Miralax Powder Packet) 17 gm DAILY PRN PO 12/03/16 20:00 01/02/17 19:59 Ondansetron HCl (Zofran Inj) 4 mg Q6H PRN IV 12/03/16 20:00 01/02/17 19:59 Miscellaneous Information (Order Awaiting Action) 1 ea QS N/A 12/04/16 00:00 01/03/17 00:00 Vancomycin HCl 1000 mg/Sodium Chloride 270 ml @ 125 mls/hr Q12H IV 12/04/16 02:00 12/14/16 01:59 12/05/16 02:24 125 MLS/HR Vancomycin HCl (Consult) 1 ea UD PRN N/A 12/03/16 21:00 01/02/17 20:59 Levofloxacin (Levaquin Tab) 500 mg DAILY@11 PO 12/04/16 18:00 12/13/16 10:59 12/04/16 18:09 500 MG Physical Exam Date Time Temp Pulse Resp B/P (MAP) Pulse Ox O2 Delivery O2 Flow Rate FiO2 12/05/16 07:20 36.7 80 18 105/69 (81) 98 Room Air 12/05/16 02:00 Room Air 12/04/16 23:32 36.9 87 20 95/59 (71) 97 Room Air 12/04/16 18:22 Room Air 12/04/16 16:03 36.9 91 18 105/69 (81) 100 Room Air 12/04/16 08:00 Room Air General Appearance: WD/WN, no apparent distress Neck: supple, no adenopathy, trachea midline Respiratory: chest non-tender, lungs clear, normal breath sounds Cardiovascular: regular rate, rhythm, no edema, no gallop, no murmur Abdomen: normal bowel sounds, non tender, soft Musculoskeletal: Normal range of motion of both ankles without pain at the ankle joint. Range of motion of the ankles did cause some pain over the anterior tibias Neurologic/Psychiatric: alert, normal mood/affect, oriented x 3 Skin: + pertinent finding ( erythematous macules over both anterior tibia is that are painful to palpation. some small nodular erythema the lesions that are painful as well. Bilateral lower leg edema that extends into the feet noted. no palpable purpura) Lymphatic: no adenopathy Laboratory Results Last 24 Hours Test 12/04/16 10:36 12/04/16 18:33 12/05/16 07:36 Assessment & Plan Assessment & Plan: Assessment: Licha is a 31-year-old healthy female who developed a painful nodular and macular lesions on both anterior tibia is and lower legs with associated edema. The initial concern for cellulitis and was admitted and placed on IV antibiotics. She has been evaluated by Infectious Disease and unlikely be cellulitis especially given the bilateral nature of her lesions. I would agree that her skin disease looks like erythema nodosum. There is a least no significant concerning inflammatory bowel disease history, Behcet's or sarcoid. From a rheumatology standpoint Donna's syndrome or sarcoid is usually the top differential along with inflammatory bowel disease. sarcoid does seem less likely given her normal calcium level and normal chest x-ray and on her exam she really does not have an inflammatory ankle arthritis. Would consider getting a CT of the chest and some additional blood work with this can be done as an outpatient and this was discussed with the patient. given her ongoing pain and discomfort I would recommend a prednisone taper and will also contact Dermatology to discuss the possible need for a biopsy. I discussed the case with the hospitalist Plan: 1. Pred taper: 40 milligrams daily for 3 days, then 30 milligrams daily for 3 days, then 20 milligrams for 3 days, 10 milligrams for 3 days, 5 milligrams for 3 days and stop 2. will contact Dermatology to likely get set up for an outpatient evaluation and biopsy 3. will arrange additional laboratory studies and possible CT of the chest as an outpatient 4. I will arrange outpatient Rheumatology follow-up as well 5. thank you for the consult involving me in this patient 's care
[2016-12-05 08:21] LABS: BUN/CREATININE RATIO 10.7 (10-20); CALCIUM 9.2 mg/dl (8.5-10.1); CREATININE 0.71 mg/dl (0.60-1.20); MAGNESIUM 2.2 mg/dl (1.8-2.4); POTASSIUM 4.2 mmol/L (3.5-5.1)
[2016-12-05] MEDS: LEVOFLOXACIN 500 MG TAB PO SCH (11:00)
[2016-12-05] MEDS ORDERED: VANCOMYCIN TROUGH SCH (13:30)
--- NOTE | 2016-12-05 15:00 | Progress Note ---
Internal Med Progress Note Date of Service: Dec 05, 2016. Provider Documentation: SUBJECTIVE: Seen and examined at bedside States leg pain is better Erythema improving Denies Chest pain, SOB, abd pain, dizziness, nausea, diarrhea OBJECTIVE: Vital Signs-as noted below Physical Exam: General Appearance:Moderately built and nourished, no apparent distress Head: normocephalic, Atraumatic Eyes: normal inspection, EOMI, PERRL Neck: supple, Trachea midline Respiratory/Chest: Normal breath sounds, CTA Cardiovascular: S1, S2, No murmur Abdomen/GI:Soft, Non tender, Bowel sounds present Extremities/Musculoskelatal:B/L LE edema, erythematous lesions Neurologic/Psych:AAOX3, grossly no focal neurological deficits Skin: Erthematous lesions as above Lab data as noted below. ASSESSMENT & PLAN: Patient is 31 yr female, who presents with lower extremity erythema and swelling. SIRS Lower extremity erythema and swelling: Likely Erythema nodosum Patient on OCPs at home On IV vancomycin and Levaquin empirically Appreciate ID input Anti streptolysin screen: Negative Histoplasmosis work up pending Appreciate Rheumatology Input Blood/Urine cultures:No growth to date CXR:No active disease Venous Doppler: No DVT Plan to taper Prednisone 40 mg for 3 days, then 30 mg for 3 days, then 20 mg for 3 days, 10 mg for 3 days, 5 mg for 3 days and stop Rheumatology recommends additional laboratory studies and possible CT of the chest as an outpatient Needs follow up with Rheumatology as out patient DVT Px: Lovenox SQ Code Status: full code. Disposition: Turner to discharge home when stable Follow up with your Primary Care physician on 12/10/16 at 10:45 AM at [facility] Office Follow up with your [employer] G[employer] Dr. Connors on Dec 20, 2016 at 8:00 AM Vital Signs: Date Time Temp Pulse Resp B/P (MAP) Pulse Ox O2 Delivery O2 Flow Rate FiO2 12/05/16 08:00 Room Air 12/05/16 07:20 36.7 80 18 105/69 (81) 98 Room Air 12/05/16 02:00 Room Air 12/04/16 23:32 36.9 87 20 95/59 (71) 97 Room Air 12/04/16 18:22 Room Air 12/04/16 16:03 36.9 91 18 105/69 (81) 100 Room Air Lab Results: Results Past 24 Hours Test 12/04/16 18:33 12/05/16 07:36 12/05/16 13:34 Range/Units White Blood Count 5.43 4.8-10.8 K/uL Red Blood Count 3.83 4.2-5.4 M/uL Hemoglobin 10.7 12.0-16.0 g/dL Hematocrit 32.7 37-47 % Mean Corpuscular Volume 85.4 80-100 fL Mean Corpuscular Hemoglobin 27.9 25-34 pg Mean Corpuscular Hemoglobin Concent 32.7 32-36 g/dl Platelet Count 320 130-400 K/uL Mean Platelet Volume 9.6 7.4-10.4 fL Neutrophils (%) (Auto) 62.7 % Lymphocytes (%) (Auto) 21.5 % Monocytes (%) (Auto) 9.9 % Eosinophils (%) (Auto) 4.8 % Basophils (%) (Auto) 0.7 % Neutrophils # (Auto) 3.40 1.4-6.5 K/uL Lymphocytes # (Auto) 1.17 1.2-3.4 K/uL Monocytes # (Auto) 0.54 0.11-0.59 K/uL Eosinophils # (Auto) 0.26 0-0.5 K/uL Basophils # (Auto) 0.04 0-0.2 K/uL RDW Standard Deviation 39.1 36.4-46.3 fL RDW Coefficient of Variation 12.5 11.5-14.5 % Immature Granulocyte % (Auto) 0.4 % Immature Granulocyte # (Auto) 0.02 0.00-0.02 K/uL Sodium Level 141 136-145 mmol/L Potassium Level 4.2 3.5-5.1 mmol/L Chloride Level 108 98-107 mmol/L Carbon Dioxide Level 27 21-32 mmol/L Anion Gap 6.0 3-11 mmol/L Blood Urea Nitrogen 8 7-18 mg/dl Creatinine 0.71 0.60-1.20 mg/dl Est Creatinine Clear Calc Drug Dose 99.2 ml/min Estimated GFR () 131.5 Estimated GFR (Non- 113.5 BUN/Creatinine Ratio 10.7 10-20 Random Glucose 92 70-99 mg/dl Calcium Level 9.2 8.5-10.1 mg/dl Magnesium Level 2.2 1.8-2.4 mg/dl Vancomycin Level Trough 7.7 SEE COMMENT mcg/ml Microbiology Results 12/04/16 Throat Culture - Preliminary, Resulted MODERATE NORMAL HYACINTH Present, Final ...
--- NOTE | 2016-12-05 15:57 | Pharmacy Progress Note ---
Pharmacy Abx Dose Short Note Date of Service Dec 05, 2016. Assessment & Plan Assessment 31 year old female receiving Vancomycin for treatment of cellulitis and possible bacteremia. Presented to the ED with complaints of worsening bilateral lower extremity edema that began two weeks ago. Per rheumatology report from today most likely erythema nodosum. Day # 3 of antimicrobial therapy. Item Value Date Time Vancomycin Level Trough 7.7 mcg/ml 12/05/16 1334 Trough level of 7.7 mcg/mL is subtherapeutic. Plan to increase vancomycin dosing. Goal trough for cellulitis with possible bacteremia 15-20 mcg/mL. Blood cultures continue to have no growth to date. Renal function is stable. Plan Vancomycin * Vancomycin 1gm IV q q 8 hours * Trough ordered for 12 06 @ 1330. Pharmacy will continue to follow and will adjust dose/frequency as necessary. Thank you.
--- NOTE | 2016-12-05 19:43 | Infectious Disease Progress Nt ---
Progress Note Date of Service Dec 05, 2016. Subjective Pt evaluation today including: conversation w/ patient, physical exam, chart review, lab review, review of studies, conversation w/ search engine optimization consultant, review of inpatient medication list Rheumatology consult noted. Leg pain improving. Now on prednisone. Remains afebrile. Cultures remain negative. All Other Systems: Reviewed and Negative Medications Current Inpatient Medications Medications (Trade) Dose Ordered Sig/Vandana Route Start Time Stop Time Status Last Admin Dose Admin Enoxaparin Sodium (Lovenox Inj) 40 mg Q24H SQ 12/03/16 22:00 01/02/17 21:59 Acetaminophen (Tylenol Tab) 650 mg Q4H PRN PO 12/03/16 20:00 01/02/17 19:59 12/04/16 21:28 650 MG Polyethylene (Miralax Powder Packet) 17 gm DAILY PRN PO 12/03/16 20:00 01/02/17 19:59 Ondansetron HCl (Zofran Inj) 4 mg Q6H PRN IV 12/03/16 20:00 01/02/17 19:59 Miscellaneous Information (Order Awaiting Action) 1 ea QS N/A 12/04/16 00:00 01/03/17 00:00 Vancomycin HCl (Consult) 1 ea UD PRN N/A 12/03/16 21:00 01/02/17 20:59 Levofloxacin (Levaquin Tab) 500 mg DAILY@11 PO 12/04/16 18:00 12/13/16 10:59 12/05/16 11:00 500 MG Prednisone (PredniSONE TAB) 40 mg DAILY PO 12/06/16 08:00 12/08/16 07:59 Vancomycin HCl 1000 mg/Sodium Chloride 270 ml @ 125 mls/hr Q8H IV 12/05/16 22:00 12/14/16 01:59 Objective Vital Signs Date Time Temp Pulse Resp B/P (MAP) Pulse Ox O2 Delivery O2 Flow Rate FiO2 12/05/16 08:00 Room Air 12/05/16 07:20 36.7 80 18 105/69 (81) 98 Room Air 12/05/16 02:00 Room Air 12/04/16 23:32 36.9 87 20 95/59 (71) 97 Room Air Physical Exam General Appearance: WD/WN, no apparent distress Eyes: normal inspection, EOMI, sclerae normal ENT: normal ENT inspection, pharynx normal Neck: supple, no adenopathy, trachea midline Respiratory/Chest: chest non-tender, lungs clear, normal breath sounds, no respiratory distress Cardiovascular: regular rate, rhythm, no gallop, no murmur Abdomen: normal bowel sounds, non tender, soft, no organomegaly Extremities: no calf tenderness, normal capillary refill Neurologic/Psychiatric: alert, oriented x 3 Skin: normal color, + pertinent finding (Leg lesions slightly better) Lymphatic: no adenopathy Laboratory Results Last 24 Hours Test 12/05/16 07:36 12/05/16 13:34 White Blood Count 5.43 K/uL Red Blood Count 3.83 M/uL Hemoglobin 10.7 g/dL Hematocrit 32.7 % Mean Corpuscular Volume 85.4 fL Mean Corpuscular Hemoglobin 27.9 pg Mean Corpuscular Hemoglobin Concent 32.7 g/dl Platelet Count 320 K/uL Mean Platelet Volume 9.6 fL Neutrophils (%) (Auto) 62.7 % Lymphocytes (%) (Auto) 21.5 % Monocytes (%) (Auto) 9.9 % Eosinophils (%) (Auto) 4.8 % Basophils (%) (Auto) 0.7 % Neutrophils # (Auto) 3.40 K/uL Lymphocytes # (Auto) 1.17 K/uL Monocytes # (Auto) 0.54 K/uL Eosinophils # (Auto) 0.26 K/uL Basophils # (Auto) 0.04 K/uL RDW Standard Deviation 39.1 fL RDW Coefficient of Variation 12.5 % Immature Granulocyte % (Auto) 0.4 % Immature Granulocyte # (Auto) 0.02 K/uL Sodium Level 141 mmol/L Potassium Level 4.2 mmol/L Chloride Level 108 mmol/L Carbon Dioxide Level 27 mmol/L Anion Gap 6.0 mmol/L Blood Urea Nitrogen 8 mg/dl Creatinine 0.71 mg/dl Est Creatinine Clear Calc Drug Dose 99.2 ml/min Estimated GFR () 131.5 Estimated GFR (Non- 113.5 BUN/Creatinine Ratio 10.7 Random Glucose 92 mg/dl Calcium Level 9.2 mg/dl Magnesium Level 2.2 mg/dl Vancomycin Level Trough 7.7 mcg/ml Assessment and Plan Clinical picture seems more consistent with diagnosis of erythema nodosum rather than bilateral lower extremity cellulitis. Infectious causes being explored, serologies pending. Rheumatology consulted, additional studies ordered and pending. Will consider transition to oral antibiotics in the next day or so if remains improved.
[2016-12-05] MEDS: ENOXAPARIN 40 MG/0.4 ML SYR SQ SCH (21:47)
[2016-12-05 23:33] VITALS: BP 96/60; PULSE 75; TEMP 36.6; O2SAT 97
[2016-12-06] MEDS: VANCOMYCIN INJ 1,000 MG in SODIUM CHLORIDE 0.9% 250ML 250 ML IV SCH ×2 (05:37→14:02)
[2016-12-06 07:27] VITALS: BP 101/63; PULSE 81; TEMP 36.8; O2SAT 97
[2016-12-06] MEDS: [UNRECOGNIZED DRUG - REMARK] SCH ×2 (07:47)
[2016-12-06] MEDS: LEVOFLOXACIN 500 MG TAB PO SCH (11:09)
[2016-12-06] MEDS ORDERED: VANCOMYCIN TROUGH ONE (13:30)
--- NOTE | 2016-12-06 14:39 | Pharmacy Progress Note ---
Pharmacy Abx Dose Progress Nt Date of Service Dec 06, 2016. Pharmacy Dosing Scope The patient is currently receiving the following antimicrobial agents per Pharmacy consult: -Vancomycin 1000 mg IV every 8 hours Objective Height (Feet): 5 Height (Inches): 4.00 Weight (Kilograms): 59.700 Vital Signs (Past 12Hrs) Vital Signs Past 12 Hours Date Time Temp Pulse Resp B/P (MAP) Pulse Ox O2 Delivery O2 Flow Rate FiO2 12/06/16 08:00 Room Air 12/06/16 07:27 36.8 81 18 101/63 (76) 97 Room Air Lab Results (24Hrs) Item Value Date Time Vancomycin Level Trough 15.8 mcg/ml 12/06/16 1316 Micro Results Date/Time Source Procedure Growth Status 12/03/16 18:10 Blood Blood Culture - Preliminary NO GROWTH TO DATE. Resulted 12/03/16 17:46 Blood Blood Culture - Preliminary NO GROWTH TO DATE. Resulted 12/04/16 17:18 Throat Throat Culture - Final MODERATE NORMAL HYACINTH. Complete 12/03/16 17:45 Urine , Clean Catch Urine Culture - Final NO GROWTH - LESS THAN 1,000 COLONIES/ML Complete Assessment & Plan Assessment 31 year old female receiving Vancomycin and Levaquin for treatment of possible cellulitis. Pt presented with worsening of bilateral LE edema. Rheumatology has been consulted and suspects most likely erythema nodosum. ID also on board. * Day # 4 of antimicrobial therapy * WBC count greatly improved Plan Vancomycin IV * Trough level of 15.8 mcg/mL is therapeutic * Continue dose of 1000 mg IV every 8 hours * Goal trough level for: 15 to 20 mcg/mL Levaquin 500 mg PO q24h - not pharm consult Pharmacy will continue to follow and will adjust dose/frequency as necessary. Thank you.
[2016-12-06 15:01] VITALS: BP 103/64; PULSE 84; TEMP 36.9; O2SAT 96
--- NOTE | 2016-12-06 15:53 | Progress Note ---
Internal Med Progress Note Date of Service: Dec 06, 2016. Provider Documentation: SUBJECTIVE: Seen and examined at bedside States leg pain/Erythema has resolved Denies Chest pain, SOB, abd pain, dizziness, nausea, diarrhea Family at bedside OBJECTIVE: Vital Signs-as noted below Physical Exam: General Appearance:Moderately built and nourished, no apparent distress Head: normocephalic, Atraumatic Eyes: normal inspection, EOMI, PERRL Neck: supple, Trachea midline Respiratory/Chest: Normal breath sounds, CTA Cardiovascular: S1, S2, No murmur Abdomen/GI:Soft, Non tender, Bowel sounds present Extremities/Musculoskelatal:B/L LE edema, erythematous lesions Neurologic/Psych:AAOX3, grossly no focal neurological deficits Skin: Erthematous lesions as above Lab data as noted below. ASSESSMENT & PLAN: Patient is 31 yr female, who presents with lower extremity erythema and swelling. SIRS Lower extremity erythema and swelling: Likely Erythema nodosum Patient on OCPs at home DC IV vancomycin and Levaquin: discussed with on 12/06/16 Appreciate ID input Anti streptolysin screen: Negative Histoplasmosis work up pending Appreciate Rheumatology Input Blood/Urine cultures:No growth to date CXR:No active disease Venous Doppler: No DVT Plan to taper Prednisone 40 mg for 3 days, then 30 mg for 3 days, then 20 mg for 3 days, 10 mg for 3 days, 5 mg for 3 days and stop Rheumatology recommends additional laboratory studies and possible CT of the chest as an outpatient Needs follow up with Rheumatology as out patient DVT Px: Lovenox SQ Code Status: full code. Disposition: Turner to discharge home today Follow up with your Primary Care physician on 12/10/16 at 10:45 AM at [facility] Office Follow up with your Repair Order Clerk Dr. Connors on Dec 20, 2016 at 8:00 AM Vital Signs: Date Time Temp Pulse Resp B/P (MAP) Pulse Ox O2 Delivery O2 Flow Rate FiO2 12/06/16 15:01 36.9 84 20 103/64 (77) 96 Room Air 12/06/16 08:00 Room Air 12/06/16 07:27 36.8 81 18 101/63 (76) 97 Room Air 12/06/16 00:05 Room Air 12/05/16 23:33 36.6 75 16 96/60 (72) 97 Room Air 12/05/16 20:27 Room Air Lab Results: Results Past 24 Hours Test 12/06/16 13:16 Range/Units Vancomycin Level Trough 15.8 SEE COMMENT mcg/ml
[2016-12-06] MEDS ORDERED: PRED10TA PO (15:59)
--- NOTE | 2016-12-06 16:05 | Discharge Summary ---
Discharge Summary Date of Service Dec 06, 2016. Discharge Summary Admission Date: Dec 03, 2016 at 19:58 Discharge Date: Dec 06, 2016 Discharge Disposition: Home Principal Diagnosis: Erythema Nodosum Procedures: Venous Doppler: There is no sonographic evidence of deep venous thrombosis identified in the right or left lower extremity. CXR: No active disease in the chest. Consultations: ID, Rheumatology Pending Studies/Follow-Up: Follow up with your Primary Care physician on 12/10/16 at 10:45 AM at [facility] Office Follow up with your [employer]person [employer] Dr. Connors on Dec 20, 2016 at 8:00 AM Get additional laboratory studies and possible CT of the chest as an outpatient as per the recommendations from your Rheumatology Do not take Oral Contraceptive Pills for now and use alternate method of contraception Prednisone Taper: Start taking Prednisone 40 mg for 1 day, then 30 mg for 3 days, then 20 mg for 3 days, 10 mg for 3 days, 5 mg for 3 days and stop Medication Reconciliation New Medications: Prednisone Tab (Prednisone) 10 Mg Tab 10 MG PO UD for 13 Days, #24 TAB Take Prednisone daily 40mg for 1 day, then 30mg for 3 days, then 20mg for 3 days, 10mg for 3 days, 5mg for 3 days and stop Discontinued Medications: Control Pills ( Control Pills) Tab 1 TAB PO DAILY, TAB Admission Information HPI (per Admitting provider): CHIEF COMPLAINT: Bilateral lower extremity pain and erythema. HISTORY OF PRESENT ILLNESS: This is a 31-year-old female with no significant past medical history, who comes with bilateral lower extremity erythema and swelling. The patient states that she was on vacation in [place], [place] and [place] and came back a couple of weeks ago. Since she came in she noticed some bruises on her lower extremity and over the last weekend they have got worse and also noticed swelling in the legs; so she went to a urgent care and was sent to the ER. She was found to have some temp spike in the ER. She denies any insect bite or tick bite. No injury. Otherwise, she is doing okay. She denies any headaches, no blurred vision, no dizziness, no sore throat and no difficulty swallowing. No runny nose, no chest pain, no shortness of breath, no cough, no nausea, no vomiting and no abdominal pain. Has normal bowel and bladder movements. No blood in the stools, no black stools and no blood in the urine. Appetite is okay. Since yesterday, she is having difficulty ambulating because of pain in the lower extremities. Currently resting comfortably, somewhat tachycardic in the ER. Physical Exam (per Admitting): PHYSICAL EXAMINATION: GENERAL: The patient is of moderate build, not in distress. VITAL SIGNS: T-max 38, pulse 116, respiratory rate 18, blood pressure 101/59 and oxygen 97% on room air. HEENT: No pallor, no icterus. Pupils are equal, round and reactive to light. NECK: No JVD, no neck masses, no carotid bruits. CARDIOVASCULAR: S1, S2 heard. Tachycardia. No murmurs. RESPIRATORY SYSTEM: Normal AP diameter. No accessory muscle use. No wheezing, no crackles. ABDOMEN: Soft, bowel sounds are present. Nontender. No distention. CENTRAL NERVOUS SYSTEM: Cranial nerves II-XII are grossly intact. Nonfocal. EXTREMITIES: Bilateral lower extremity edema seen and patchy erythematous changes and symmetrical distribution in bilateral lower extremity seen. Hospital Course Patient is 31 yr female, who presents with lower extremity erythema and swelling. SIRS Lower extremity erythema and swelling: Likely Erythema nodosum Patient on OCPs at home DC IV vancomycin and Levaquin: discussed with on 12/06/16 Appreciate ID input Anti streptolysin screen: Negative Histoplasmosis work up pending Appreciate Rheumatology Input Blood/Urine cultures:No growth to date CXR:No active disease Venous Doppler: No DVT Plan to taper Prednisone 40 mg for 3 days, then 30 mg for 3 days, then 20 mg for 3 days, 10 mg for 3 days, 5 mg for 3 days and stop Rheumatology recommends additional laboratory studies and possible CT of the chest as an outpatient Needs follow up with Rheumatology as out patient DVT Px: Lovenox SQ Code Status: full code. Disposition: Turner to discharge home today Follow up with your Primary Care physician on 12/10/16 at 10:45 AM at [facility] Office Follow up with your [employer]person [employer] Dr. Connors on Dec 20, 2016 at 8:00 AM Total time spent on discharge = 36 minutes This includes examination of the patient, discharge planning, medication reconciliation, and communication with other providers. Discharge Instructions Discharge Instructions Date of Service Dec 06, 2016. Admission Reason for Admission: Cellulitis Discharge Discharge Diagnosis / Problem: Erythema Nodosum Discharge Goals Goal(s): Decrease discomfort, Improve function Activity Recommendations Activity Limitations: resume your previous activity Exercise/Sports Limitations: as tolerated . Instructions / Follow-Up Instructions / Follow-Up Follow up with your Primary Care physician on 12/10/16 at 10:45 AM at [facility] Office Follow up with your [employer]person [employer] Dr. Connors on Dec 20, 2016 at 8:00 AM Get additional laboratory studies and possible CT of the chest as an outpatient as per the recommendations from your Rheumatology Do not take Oral Contraceptive Pills for now and use alternate method of contraception Prednisone Taper: Start taking Prednisone 40 mg for 1 day, then 30 mg for 3 days, then 20 mg for 3 days, 10 mg for 3 days, 5 mg for 3 days and stop Current Hospital Diet Patient's current hospital diet: Regular Diet Discharge Diet Recommended Diet: Regular Diet Pending Studies Studies pending at discharge: yes List of pending studies: Histoplasmosis work up Medical Emergencies . Who to Call and When: Medical Emergencies: If at any time you feel your situation is an emergency, please call 911 immediately. . Non-Emergent Contact Non-Emergency issues call your: Primary Care Provider, Specialist ( [employer]) Call Non-Emergent contact if: you have a fever, your pain is not controlled, your pain is worsening, your pain is unusual for you, your pain is concerning you, you have any medication questions Seek immediate medical attention if your symptoms reoccur or worsen . . "Provider Documentation" section prepared by Ariel Maldonado. . VTE Core Measure Inpt VTE Proph given/why not?: Enoxaparin (Lovenox)SQ
[2016-12-06 16:19] VITALS: BP 103/64; PULSE 84; TEMP 36.9; O2SAT 96
[2016-12-09 17:34] LABS: HISTOPLASMA AB Negative (Negative)
== END 2016-12-06 16:50 | disposition home or self-care (01) | DRG 596 ==
LOC: C.EDB 17:06 → C.MS4W 19:58 → ENRESERV 20:05
PROVIDERS: ADMIT Internal Medicine; ATTEND Internal Medicine
DX: L52 Erythema nodosum (principal); Z88.0 Allergy status to penicillin